=== PATIENT | female | born 1950 | race Caucasian/White ===

== ENCOUNTER 2018-05-04 20:42 | Emergency (ER) | payer MEDICARE, BC ==
[~2018-05-04] VITALS: Ht 162.6 cm; Wt 61.2 kg
[2018-05-04 20:42] VITALS: BP 106/74
== END 2018-05-04 22:02 | disposition home or self-care (01) ==
LOC: ER 20:44
DX: T63.441A Toxic effect of venom of bees, accidental (unintentional), initial encounter (principal); Y92.89 Other specified places as the place of occurrence of the external cause; Z88.6 Allergy status to analgesic agent
CPT/HCPCS: 99282; A4606; Z7610